=== PATIENT | male | born 1975 | race Caucasian/White ===

== ENCOUNTER 2019-05-09 11:30 | Inpatient (IN) | payer MEDICAID, OTHER ==
[~2019-05-09] VITALS: Ht 165.1 cm; Wt 90.9 kg
[~2019-05-09 11:30] MED LIST: IBUP-1542 PO
[2019-05-09 11:33] VITALS: Ht 165.1 cm; Wt 90.9 kg
[2019-05-09] MEDS ORDERED: SOD CHLORIDE 0.9% 1,000 ML IV STA ×2 (11:42→12:46)
[2019-05-09] MEDS ORDERED: HYDROmorphONE 1 MG/ML SYG IV STA ×2 (11:42→12:46)
[2019-05-09] MEDS ORDERED: ONDANSETRON 4 MG INJ IV STA ×2 (11:42→12:46)
[2019-05-09] MEDS ORDERED: ACETAMINOPHEN 325 MG TAB PO PRN (13:30)
[2019-05-09] MEDS ORDERED: ONDANSETRON 4 MG INJ IV PRN (13:30)
[2019-05-09] MEDS ORDERED: NACL 0.9% 3 ML SYG IV SCH (15:00)
[2019-05-09] MEDS ORDERED: MAGNESIUM HYDROXIDE 30ML CUP PO PRN (15:00)
[2019-05-09 15:15] VITALS: BP 113/62; PULSE 51; RESP 18
[2019-05-09] MEDS: morphine 2 MG INJ IV PRN ×2 (16:00→20:43)
[2019-05-09] MEDS: SOD CHLORIDE 0.9% 1,000 ML IV SCH ×2 (16:00→23:57)
[2019-05-09] MEDS: HYDROmorphONE 0.5 MG/0.5 ML SYG IV PRN (17:31)
[2019-05-09 20:02] VITALS: BP 128/76; PULSE 59; RESP 18
[2019-05-10] MEDS: morphine 2 MG INJ IV PRN ×6 (00:51→22:31)
[2019-05-10] MEDS: ONDANSETRON 4 MG INJ IV PRN ×2 (00:56→14:10)
[2019-05-10 01:48] VITALS: BP 117/61; PULSE 60; RESP 18
[2019-05-10] MEDS: PANTOPRAZOLE 40 MG INJ IV SCH (05:43)
[2019-05-10 07:27] VITALS: BP 136/69; PULSE 54; RESP 15
[2019-05-10] MEDS: SOD CHLORIDE 0.9% 1,000 ML IV SCH ×3 (08:16→20:46)
[2019-05-10 14:20] VITALS: BP 110/64; PULSE 64; RESP 18
[2019-05-10 19:29] VITALS: BP 119/69; PULSE 50; RESP 20
[2019-05-11 02:38] VITALS: BP 129/90; PULSE 56; RESP 20
[2019-05-11] MEDS: morphine 2 MG INJ IV PRN ×4 (02:45→22:05)
[2019-05-11] MEDS: SOD CHLORIDE 0.9% 1,000 ML IV SCH ×4 (04:55→21:42)
[2019-05-11] MEDS: PANTOPRAZOLE 40 MG INJ IV SCH (05:43)
[2019-05-11 08:26] VITALS: BP 115/70; PULSE 57; RESP 16
[2019-05-11 14:00] VITALS: BP 109/71; PULSE 55; RESP 17
[2019-05-11 19:33] VITALS: BP 146/78; PULSE 52; RESP 18
[2019-05-12 02:00] VITALS: BP 110/59; PULSE 53; RESP 17
[2019-05-12] MEDS: morphine 2 MG INJ IV PRN ×3 (03:49→17:19)
[2019-05-12] MEDS: PANTOPRAZOLE 40 MG INJ IV SCH (05:31)
[2019-05-12] MEDS: SOD CHLORIDE 0.9% 1,000 ML IV SCH ×2 (05:33→13:43)
[2019-05-12 07:24] VITALS: BP 134/66; PULSE 45; RESP 18
[2019-05-12] MEDS: HYDROmorphONE 0.5 MG/0.5 ML SYG IV PRN (08:33)
[2019-05-12 14:12] VITALS: BP 159/66; PULSE 41; RESP 18
[2019-05-12 20:25] VITALS: BP 116/70; PULSE 52; RESP 18
[2019-05-13 01:40] VITALS: BP 130/62; PULSE 50; RESP 18
[2019-05-13] MEDS: PANTOPRAZOLE 40 MG INJ IV SCH (05:57)
[2019-05-13 07:44] VITALS: BP 123/62; PULSE 50; RESP 16
[2019-05-13 13:54] VITALS: BP 100/62; PULSE 64; RESP 16
== END 2019-05-13 14:50 | disposition home or self-care (01) | DRG 440 ==
LOC: E/R 11:30 → MS3 13:01
PROVIDERS: ADMIT Internal Medicine; ATTEND Internal Medicine
DX: K85.20 Alcohol induced acute pancreatitis without necrosis or infection (principal); F17.210 Nicotine dependence, cigarettes, uncomplicated; E66.9 Obesity, unspecified; Z68.33 Body mass index [BMI] 33.0-33.9, adult; R74.0 Nonspecific elevation of levels of transaminase and lactic acid dehydrogenase [LDH]; F10.20 Alcohol dependence, uncomplicated; E78.5 Hyperlipidemia, unspecified; E80.6 Other disorders of bilirubin metabolism
CPT/HCPCS: 36415; 71045; 72100; 74176; 74181; 76705; 80053; 80061; 81003; 82150; 83036; 83690; 83735; 84100; 84436; 84443; 84479; 84484; 85025; 85610; 85730; 86704; 86709; 86803; 87340; 96361; 96374; 96375; C9113; J1170; J2270; J2405; J7030